=== PATIENT | male | born 1955 | race Caucasian/White ===

== ENCOUNTER 2017-01-06 10:40 | Outpatient (CLI) ==
--- NOTE | 2017-01-06 11:15 | DI ---
Exam: Two x-rays of the thoracic spine. Comparison: None available. Reason for exam: Pain. FINDINGS: No acute fracture or listhesis. The vertebral bodies and intervertebral body disc space heights are relatively well maintained. The uppermost SUV thoracic and lower cervical spine are not well seen secondary to summation. Impression: No acute fracture or listhesis in the imaged portions of the thoracic spine.
--- NOTE | 2017-01-06 11:19 | DI ---
EXAM: Radiographs, right hip HISTORY: Right hip pain. COMPARISON: None available. TECHNIQUE: Two views. FINDINGS: Bone mineralization is normal. There is no fracture or dislocation. The joint spaces ar e maintained. No focal soft tissue abnormality is seen. Clip noted within the medial soft tissues o f the right thigh. IMPRESSION: No abnormality of the right hip.
== END 2017-01-06 10:41 | disposition home or self-care (01) ==
LOC: RAD 10:40
PROVIDERS: ATTEND Family Medicine
DX: S22.42XA Multiple fractures of ribs, left side, initial encounter for closed fracture (principal); W19.XXXD Unspecified fall, subsequent encounter

== ENCOUNTER 2017-03-08 10:56 | Outpatient (CLI) ==
--- NOTE | 2017-03-08 11:14 | DI ---
EXAM: Two-view chest HISTORY: Pleural effusion. TECHNIQUE: Frontal and lateral views of the chest were obtained. FINDINGS: The heart is normal size. Lungs are clear. The pulmonary vasculature appears normal. T he osseous structures and mediastinal contours are normal. The costophrenic angles are sharp. IMPRESSION: No active cardiopulmonary disease.
== END 2017-03-08 10:57 | disposition home or self-care (01) ==
LOC: RAD 10:56
PROVIDERS: ATTEND Family Medicine
DX: J90 Pleural effusion, not elsewhere classified (principal)

== ENCOUNTER 2017-05-19 07:44 | Emergency (ER) ==
[2017-05-19 07:51] VITALS: BP 148/86; TEMP 96.9; BMI 29.1
[2017-05-19] MEDS ORDERED: ZITHROMAX PO STA (08:01)
[2017-05-19] MEDS ORDERED: DECADRON 4 MG/ML SDV IM STA (08:01)
[2017-05-19] MEDS ORDERED: DUONEB NEB STA (08:01)
[2017-05-19 08:13] LABS: BASOPHILS # (AUTO) 0.1 K/uL (0-0.2); BASOPHILS % (AUTO) 0.6 % (0.0-3.0); EOSINOPHILS # (AUTO) 0.4 K/ul (0.0-0.7); EOSINOPHILS % (AUTO) 4.2 % (0.0-7.0); IMMATURE GRANULOCYTE % (AUTO) 0.2 % (0.0-5.0); LYMPHOCYTES % (AUTO) 20.4 (10.0-50.0); MEAN CORPUSCULAR HEMOGLOBIN 28.5 pg (27.0-31.0); MEAN CORPUSCULAR HGB CONC 34.4 (31.8-35.4); MEAN CORPUSCULAR VOLUME 82.9 fl (80.0-94.0); MONOCYTES # (AUTO) 0.8 K/uL (0.4-2.0); MONOCYTES % (AUTO) 8.1 (0-10); NEUTROPHILS # (AUTO) 6.7 K/ul (2.0-6.9); NEUTROPHILS % (AUTO) 66.5; PLATELET COUNT 358 10^3/uL (140-440); RED BLOOD COUNT 3.86 10^6/ul (4.70-6.10)
[2017-05-19 08:39] LABS: ALBUMIN 2.9 g/dL (3.4-5.0); ALBUMIN/GLOBULIN RATIO 0.88; ANION GAP 12.3; BILIRUBIN,TOTAL 0.38 mg/dL (0.00-1.20); BUN/CREATININE RATIO 17.32; CALCIUM 8.9 mg/dL (8.2-10.2); CREATININE 1.27 mg/dL (0.60-1.10); POTASSIUM 4.3 mmol/L (3.5-5.1); TOTAL PROTEIN 6.2 g/dL (5.8-8.1)
--- NOTE | 2017-05-19 09:05 | DI ---
EXAM: Chest two view, frontal and lateral views. HISTORY: Cough. COMPARISON: 03/08/2017. FINDINGS: Post CABG changes noted. Heart is at the upper limits of normal in size. There is no vas cular congestion. Lungs are clear without pleural effusion or pneumothorax. Osseous structures are intact. Since the prior study, there has been no significant interval change. IMPRESSION: No acute process.
--- NOTE | 2017-05-19 09:26 | ED.PDOC ---
General ED Provider: Dr. KAILA PINEDO Chief Complaint: Respiratory Complaint Stated Complaint: cough Time Seen by Physician: 08:00 (seen with staff) Mode of Arrival: Walk-In Information Source: Patient Exam Limitations: No limitations Primary Care Provider: SHANI FOX Nursing and Triage Documentation Reviewed and Agree: Yes Respiratory Complaint Exam - Respiratory Complaint/Exam Symptoms Are: Resolved Timing: Intermittent Initial Severity: Moderate Current Severity: None Location: Throat, Chest Character: Reports: Non-productive cough Aggravating: Reports: None Alleviating: Reports: Bronchodilators, Spontaneous resolution Associated Signs and Symptoms: Reports: Wheezing, URI, Nasal congestion. Denies : Rapid breathing, Dyspnea, Fever, Chills, Chest pain, Pleuritic chest pain, Hemoptysis, Dizziness, Calf pain, Calf swelling, Edema, Hoarseness, Sinus discomfort, Vomiting, Sore throat, Weight loss, Decreased oral intake, Increased thirst, Increased appetite, Increased urination Related History: Reports: Similar episode History of Healthcare-Acquired Pneumonia: No Related Surgical History: Reports: None Pulmonary Embolism Risk Factors: None Cardiac Risk Factors: Reports: CAD, Diabetes, Hypertension Pseudomonas Risk Factors: Reports: None Tuberculosis Risk Factors: Reports: None Status Asthmaticus Risk Factors: Reports: None Home Oxygen Use: No Recent Stress Test: No Recent Echo/LV Function: No Current Antibiotic Use: No Current Asthma Medication Use: No Respiratory Distress: None Inadequate Respiratory Effort: No Dysphagia Present: No Stridor Present: No JVD Present: No Accessory Muscle Use: No Retractions: Not Present Diminished Breath Sounds: No Sinus Tenderness: None Grunting Respirations: No Kussmaul Respirations: No Differential Diagnoses: Pneumonia, Bronchitis Review of Systems - Review Of Systems Constitutional: Reports: No symptoms Eyes: Reports: No symptoms Ears, Nose, Mouth, Throat: Reports: No symptoms Respiratory: Reports: Cough Cardiac: Reports: No symptoms GI: Reports: No symptoms : Reports: No symptoms Musculoskeletal: Reports: No symptoms Skin: Reports: No symptoms Neurological: Reports: No symptoms Endocrine: Reports: No symptoms Hematologic/Lymphatic: Reports: No symptoms All Other Systems: Reviewed and Negative Past Medical History - Past Medical History Previously Healthy: Yes Endocrine: Reports: DM 2, Dyslipidemia Cardiovascular: Reports: CAD, Hypertension Respiratory: Reports: None Hematological: Reports: None Gastrointestinal: Reports: None Genitourinary: Reports: None Neuro/Psych: Reports: None Musculoskeletal: Reports: None Cancer: Reports: None - Surgical History General Surgical History: Reports: None - Family History Family History: Reports: None - Social History Smoking Status: Former smoker Hx Substance Use: No Alcohol Screening: None Physical Exam - Physical Exam Appearance: Well-appearing, No pain distress, Well-nourished Eyes: JEYSON, EOMI, Conjunctiva clear ENT: Ears normal, Nose normal, Oropharynx normal Respiratory: Airway patent, Breath sounds clear, Breath sounds equal, Respirations nonlabored Cardiovascular: RRR, Pulses normal, No rub, No murmur GI/: Soft, Nontender, No masses, Bowel sounds normal, No Organomegaly Musculoskeletal: Normal strength, ROM intact, No edema, No calf tenderness Skin: Warm, Dry, Normal color Neurological: Sensation intact, Motor intact, Reflexes intact, Cranial nerves intact, Alert, Oriented Psychiatric: Affect appropriate, Mood appropriate Interpretation - Radiology Interpretation Radiology Interpretation By: Radiologist Re-Evaluation - Re-Evaluation Time of Re-Evaluation: 09:00 Status: Improved Vital Signs Stable: Yes Pain Level: 0 Appearance: NAD Lungs: Clear Skin: Warm and Dry Neuro: Alert and Oriented X3 CV: RRR - Re-Evaluation Time of Re-Evaluation: 09:30 (discussed labs pt comfortable) Status: Improved Vital Signs Stable: Yes Pain Level: 0 Appearance: NAD Skin: Warm and Dry Neuro: Alert and Oriented X3 CV: RRR Critical Care Note - Critical Care Note Total Time (mins): 0 Course - Course Hematology/Chemistry: 05/19/17 08:10 05/19/17 08:10 Orders, Labs, Meds: Lab Review 05/19/17 05/19/17 08:10 08:10 WBC 10.00 RBC 3.86 L Hgb 11.0 L Hct 32.0 L MCV 82.9 MCH 28.5 MCHC 34.4 RDW Coeff of Ronald 12.8 Plt Count 358 Immature Gran % (Auto) 0.2 Neut % (Auto) 66.5 Lymph % (Auto) 20.4 [place] % (Auto) 8.1 Eos % (Auto) 4.2 Baso % (Auto) 0.6 Immature Gran # (Auto) 0.0 Neut # 6.7 Lymph # 2.0 [place] # 0.8 Eos # 0.4 Baso # 0.1 Sodium 141 Potassium 4.3 Chloride 108 H Carbon Dioxide 25 Anion Gap 12.3 BUN 22 H Creatinine 1.27 H Estimated GFR (MDRD) 58.00 BUN/Creatinine Ratio 17.32 Glucose 105 Calcium 8.9 Total Bilirubin 0.38 AST 15 ALT 16 Alkaline Phosphatase 56 Total Protein 6.2 Albumin 2.9 L Globulin 3.3 Albumin/Globulin Ratio 0.88 Orders Category Date Time Status NEBULIZER TREATMENT Stat CARDIO 05/19/17 08:01 Completed CBC W/ AUTO DIFF Stat LAB 05/19/17 08:10 Completed COMPREHENSIVE METABOLIC PANEL Stat LAB 05/19/17 08:10 Completed Azithromycin [Zithromax] MEDS 05/19/17 08:01 Discontinued 500 mg PO ONCE STA Ipratropium/Albuterol Neb [Duoneb] MEDS 05/19/17 08:01 Discontinued 1 vial NEB ONCE STA CHEST, 2 VIEWS PA & LAT Stat RADS 05/19/17 08:00 Completed Medications Discontinued Medications Generic Name Dose Route Start Last Admin Trade Name Freq PRN Reason Stop Dose Admin Albuterol/Ipratropium 1 vial 05/19/17 08:01 05/19/17 08:21 Duoneb NEB 05/19/17 08:02 1 vial ONCE STA Administration Azithromycin 500 mg 05/19/17 08:01 05/19/17 08:17 Zithromax PO 05/19/17 08:02 500 mg ONCE STA Administration Vital Signs: Temp Pulse Resp BP Pulse Ox 05/19/17 07:44 96.9 F L 94 H 20 148/86 H 97 Departure - Departure Time of Disposition: 09:40 Disposition: HOME SELF-CARE Discharge Problem: Bronchitis Instructions: Acute Bronchitis (ED), Wheezing (ED), How Your Lungs Work (ED), Bronchospasm (ED) Condition: Good Pt referred to PMD for follow-up: Yes Additional Instructions: Please call your Family Physician as soon as possible to schedule a follow-up appointment. start your meds IN AM Allergies/Adverse Reactions: Allergies No Known Allergies Allergy (Unverified 05/19/17 07:51) Home Medications: Ambulatory Orders Aspirin 81 mg PO DAILY 05/19/17 Cinnamon Bark [Cinnamon] 500 mg PO BID 05/19/17 Enalapril Maleate 5 mg PO DAILY 05/19/17 Glyburide 2.5 mg PO TID 05/19/17 Insulin Glargine,Hum.rec.anlog [Lantus] 20 unit SUBCUT BEDTIME 05/19/17 Insulin Lispro [Humalog] 4 unit SQ BID BREAKFAST&LUNCH 05/19/17 Linagliptin [Tradjenta] 5 mg PO DAILY 05/19/17 Metformin HCl 500 mg PO BID 05/19/17 Metoprolol Succinate 25 mg PO DAILY 05/19/17 Multivitamin 1 cap PO DAILY 05/19/17 NPH, Human Insulin Isophane [Humulin N] 7 unit SUBCUT INSULIN EVENING 05/19/17 NPH, Human Insulin Isophane [Humulin N] 18 unit SUBCUT INSULIN MORNING 05/19/17 [place]-3 Fatty Acids/Fish Oil [Fish Oil 1,000 mg Capsule] 1 each PO BID 05/19/17 Simvastatin 40 mg PO BEDTIME 05/19/17
== END 2017-05-19 09:38 | disposition home or self-care (01) ==
LOC: ED 07:44
DX: J40 Bronchitis, not specified as acute or chronic (principal); E11.9 Type 2 diabetes mellitus without complications; I10 Essential (primary) hypertension; I25.10 Atherosclerotic heart disease of native coronary artery without angina pectoris; E78.5 Hyperlipidemia, unspecified; Z79.899 Other long term (current) drug therapy
CPT/HCPCS: 36415; 80053; 85025; 94640; 99283

== ENCOUNTER 2018-09-29 11:14 | Outpatient (RCR) ==
[2018-09-29 12:49] VITALS: TEMP 207.5; BMI 30.9
[2018-10-19 10:01] VITALS: BP 122/56
== END 2018-10-20 23:59 ==
LOC: CAR.REHAB 11:14
PROVIDERS: ATTEND Specialist
DX: Z95.5 Presence of coronary angioplasty implant and graft (principal)
CPT/HCPCS: 93798

== ENCOUNTER 2018-10-21 06:23 | Outpatient (RCR) ==
[2018-11-14 09:45] VITALS: BP 126/56
== END 2018-11-20 23:59 ==
LOC: CAR.REHAB 06:23
PROVIDERS: ATTEND Specialist
DX: Z95.5 Presence of coronary angioplasty implant and graft (principal)
CPT/HCPCS: 93798

== ENCOUNTER 2018-11-21 06:58 | Outpatient (RCR) ==
[2018-12-19 11:43] VITALS: BP 132/60
== END 2018-12-20 23:59 ==
LOC: CAR.REHAB 06:58
PROVIDERS: ATTEND Specialist
DX: Z95.5 Presence of coronary angioplasty implant and graft (principal)
CPT/HCPCS: 93798

== ENCOUNTER 2018-12-21 06:48 | Outpatient (RCR) ==
[2019-01-20 11:55] VITALS: BP 126/68
== END 2019-01-20 23:59 ==
LOC: CAR.REHAB 06:48
PROVIDERS: ATTEND Specialist
DX: Z95.5 Presence of coronary angioplasty implant and graft (principal)
CPT/HCPCS: 93798

== ENCOUNTER 2019-01-03 10:31 | Outpatient (CLI) ==
--- NOTE | 2019-01-03 11:14 | US ---
EXAM: Ultrasound abdomen limited right upper quadrant HISTORY: Right upper quadrant pain COMPARISON: None TECHNIQUE: Limited ultrasound abdomen right upper quadrant was performed FINDINGS: Pancreas obscured secondary bowel gas shadowing. Liver is enlarged. Liver diffusely incr eased in echogenicity. Main portal vein patent with direction of flow. No shadowing gallstones. No gallbladder wall thickening. No pericholecystic fluid. No biliary duct dilation with common bile d uct measuring 0.4 cm. Right kidney measures 13.2 cm in length without hydronephrosis. IMPRESSION: 1. Hepatomegaly. Hepatic steatosis. 2. No cholelithiasis. No gallbladder wall thickening.
== END 2019-01-03 10:32 | disposition home or self-care (01) ==
LOC: RAD 10:31
PROVIDERS: ATTEND Physician Assistant
DX: R10.11 Right upper quadrant pain (principal)